=== PATIENT | female | born 1965 | race Caucasian/White ===

== ENCOUNTER 2020-08-10 19:39 | Emergency (ER) | payer MEDICAID ==
[~2020-08-10] VITALS: Ht 152.4 cm; Wt 56.8 kg
[2020-08-10 20:00] VITALS: BP 141/71
--- NOTE | 2020-08-10 20:04 | NUR ---
PT AMBULATED BACK TO [facility]. VSS.
--- NOTE | 2020-08-10 20:20 | NUR ---
[facility]. ISPRIMARILY [place] SPEAKING. FACIAL GRIMACING IS NOTED WITH MOVEMENT.
[2020-08-10] MEDS: KETOROLAC 60 MG/2 ML VIAL IM ONE (20:47)
[2020-08-10 21:09] VITALS: BP 141/71
--- NOTE | 2020-08-10 21:09 | NUR ---
Patient discharged with v/s stable. Written and verbal after care instructions given and explained. Patient alert, oriented and verbalized understanding of instructions. Ambulatory with steady gait. All questions addressed prior to discharge. ID band removed. Patient advised to follow up with PMD. Rx of MOTRIN given. Patient educated on indication of medication including possible reaction and side effects. Opportunity to ask questions provided and answered. ARMMBANDM REMOVED. PAIN IS A LITTLE LESS SINCEM RECEIVINGEARLIER PAIN MEDICINE
== END 2020-08-10 21:09 | disposition home or self-care (01) ==
LOC: MED 19:39
DX: M54.5 Low back pain (principal); Z88.0 Allergy status to penicillin
CPT/HCPCS: 72100; 96372; 99283; J1885

== ENCOUNTER 2023-04-15 17:37 | Emergency (ER) | payer MEDICAID ==
[~2023-04-15] VITALS: Ht 149.9 cm; Wt 56.4 kg
[2023-04-15 17:59] VITALS: BP 156/66; PULSE 102; RESP 20; TEMP 97.6; O2SAT 99
[2023-04-15] MEDS ORDERED: KETOROLAC 30 MG/ML VIAL IM ONE (19:25)
[2023-04-15] MEDS ORDERED: BACLOFEN 10 MG TAB PO SCH (19:25)
[2023-04-15] MEDS ORDERED: GABAPENTIN 300 MG CAP PO ONE (19:35)
[2023-04-15] MEDS ORDERED: DICL20GE TP (20:16)
[2023-04-15] MEDS ORDERED: NAPR-54 PO (20:16)
[2023-04-15] MEDS ORDERED: BACL10TA4 PO (20:16)
[2023-04-15] MEDS ORDERED: LID5T TP (20:16)
[2023-04-15] MEDS ORDERED: ACET-2619 PO (20:16)
[2023-04-15] MEDS ORDERED: LIDOCAINE 5% 1 EA PATCH TP ONE (20:22)
[2023-04-15 20:32] VITALS: BP 156/66; PULSE 102; RESP 20; TEMP 97.6; O2SAT 99
[2023-04-16] MEDS ORDERED: LIDOCAINE 5% 1 EA PATCH TP ONE (09:00)
== END 2023-04-15 20:32 | disposition home or self-care (01) ==
LOC: MED 17:37
DX: S39.012A Strain of muscle, fascia and tendon of lower back, initial encounter (principal); X58.XXXA Exposure to other specified factors, initial encounter; Y93.89 Activity, other specified; Y92.89 Other specified places as the place of occurrence of the external cause; Y99.8 Other external cause status
CPT/HCPCS: 96372; 99283; J1885